=== PATIENT | female | born 1960 | race Caucasian/White ===

== ENCOUNTER 2025-03-13 13:04 | Outpatient (AMB) | payer BC, SELFPAY ==
--- NOTE | 2025-03-13 13:10 | MHC.PC.OV ---
Vital Signs 03/13/25 13:18 Height 5 ft 6.14 in Weight 224 lb 4 oz BMI 36.0 BP 122/82 Blood Pressure Location Lt brachial Position Sitting Respiration 14 Pulse 101 H Pulse Source Pulse Oximeter Temp 98.2 F Temp Source Oral Pulse Oximetry (%) 98 Oxygen Delivery Method Room Air Intake Visit Reasons: Med Management Intake Note: New patient visit Research Engineer Required: No Allergies No Known Allergies Allergy (Verified 03/13/25 13:14) Tobacco use date assessed: 03/13/25 Fall risk assessment: No Falls in past year Last assessed Fall Risk: 03/13/25 Dental Screening Dental Screen Date: 03/13/25 Did you have a dental visit in the last 12 months?: Yes Did you have a dental problem in the last 6 months where you did not have access to dental care?: No Was dental information given to patient?: Patient has dentist HPI HPI Comments History of Present Illness Details 64 year old female with a past medical history of psoriasis, arthritis presenting to [facility] . Transfer from Dr Rodney She has gained ~ 30 pounds since the Fall. She plans on going on a diet and has been successful in the past doing so. Psoriasis: Follows with [facility] [facility]. Frequent polyarthralgia Mammogram: due. [facility] Colonoscopy: cologuard ~ 1year ago (-) ROS CONSTITUTIONAL: Denies weight loss, fever and chills. HEENT: Denies changes in vision and hearing. RESPIRATORY: Denies SOB and cough. CV: Denies palpitations and CP GI: Denies abdominal pain, nausea, vomiting and diarrhea. : Denies dysuria and urinary frequency. MSK: Denies new myalgia and joint pain. SKIN: Denies rash and pruritus. NEUROLOGICAL: Denies headache PSYCHIATRIC: Denies recent changes in mood. PHYSICAL EXAM: GENERAL: Alert and oriented x 3. NAD EYES: EOMI. Anicteric. HENT: Moist mucous membranes. No scleral icterus. No cervical lymphadenopathy. LUNGS: Clear to auscultation bilaterally. CARDIOVASCULAR: Regular rate and rhythm. No murmur. No JVD. ABDOMEN: Soft, non-tender +bs EXTREMITIES: No edema. Non-tender. SKIN: No rashes or lesions. Warm. NEUROLOGIC: No focal neurological deficits. CN II-XII grossly intact PSYCHIATRIC: Cooperative. Appropriate mood and affect [facility] Surgical History H/O section H/O melanoma excision Hx of tonsillectomy H/O: hysterectomy Family History Mother HTN (hypertension) Father HTN (hypertension) High cholesterol COPD (chronic obstructive pulmonary disease) Alcoholism Paternal Grandmother Diabetes Paternal Grandfather Colon cancer Other Substance abuse Social History Housing: House Patient Tobacco Use Status: Never used Tobacco e-Cigarette/Vaping Use: Never Used Second Hand Smoke Exposure: No service: No Current occupational status: retired Cognitive needs: No Hearing needs: No Vision needs: Yes (glasses) Questionnaire PHQ-9 Over the last 2 weeks, how often have you been bothered by any of the following problems? 1. Little interest or pleasure in doing things: not at all 2. Feeling down, depressed, or hopeless: not at all 3. Trouble falling or staying asleep, or sleeping too much: not at all 4. Feeling tired or having little energy: not at all 5. Poor appetite or overeating: more than half the days 6. Feeling bad about yourself - or that you are a failure or have let yourself or your family down: not at all 7. Trouble concentrating on things, such as reading the newspaper or watching television: not at all 8. Moving or speaking so slowly that other people could have noticed. Or the opposite - being so fidgety or restless that you have been moving around a lot more than usual: not at all 9. Thoughts that you would be better off or of hurting yourself in some way: not at all Total score: 2 Depression Screening Interpretation: Negative Depression Screening Done: Yes 82999 - PHQ-9 Billing: Yes Source: Developed by Drs. Terrance Epstein, Oly Oviedo, Brooks Cruz and colleagues, with an educational aurora from [employer]. Thrive Questionnaire Date Thrive assessed: 03/13/25 I am a: Patient What is your living situation today?: I have a steady place to live Within the past 12 months, did the food you bought not last and you didn't have the money to get more?: Never true Within the past 12 months, did you worry whether your food would run out before you got money to buy more?: Never true Do you have trouble paying for medicines?: No Do you have trouble getting transportation to medical appointments?: No Do you have trouble paying your heating and electricity bill?: No Do you have trouble taking care of your child, family member or friend?: No Do you have trouble with day-to-day activities such as bathing, preparing meals, shopping, managing finances, etc.?: No Are you currently unemployed and looking for a job?: No Are you interested in more education?: No Please select the resources that you would like help with: None Currently or been in a relationship where the following occur: No concerns reported THRIVE Score: 0 AUDIT C Alcohol Use Questionnaire (AUDIT-C) 1. How often do you have a drink containing alcohol?: Never 3. How often do you have six or more drinks on one occasion?: Never Total Score: 0 ZABRINA-7 AMB Questionnaire ZABRINA-7 Date ZABRINA - 7 assessed: 03/13/25 Feeling nervous, anxious, or on edge: 0 = Not at all Not being able to stop or control worryin = Not at all Worrying too much about different things: 0 = Not at all Trouble relaxin = Not at all Being so restless that it is hard to sit still: 0 = Not at all Becoming easily annoyed or irritable: 0 = Not at all Feeling afraid as if something awful might happen: 0 = Not at all Total ZABRINA-7 score (0-4 normal; 5-9 mild; 10-14 moderate; 15-21 severe): 0 Source: Developed by Drs. Terrance Epstein, Oly Oviedo, Brooks Cruz and colleagues, with an educational aurora from [employer]. ZABRINA-7 Assessment Billing ZABRINA-7 Assessment Tool: ZABRINA-7 Assessment 88161 Physical exam (Primary Care) PHQ-9: PHQ-9 Score PHQ-9: Total score 2 03/13/25 13:11 Depression Screening Interpretation: Negative Currently or been in a relationship where the following occur: No concerns reported Coding Level of Care Code New Pt Level 4 (17604) Complex EM visit Add On G2211 Diagnoses Encounter to establish care Z76.89 Psoriasis L40.9 Psoriatic arthritis L40.50 Additional Codes ZABRINA-7 Assessment Billing - ZABRINA-7 Assessment Tool: ZABRINA-7 Assessment 81019 ([id number]) PHQ-9 - 11730 - PHQ-9 Billing: Yes ([id number]) Assessment & Plan Assessment & Plan (1) Encounter to establish care: Code(s): Z76.89 - Persons encountering health services in other specified circumstances (2) Psoriasis: Code(s): L40.9 - Psoriasis, unspecified Category: Medical (3) Psoriatic arthritis: Code(s): L40.50 - Arthropathic psoriasis, unspecified Category: Medical Plan 64 yo to establish care past medical, surgical, social reviewed psoriasis-continue derm follow up polyarthralgia-referral to rheumatology mammo, labs ordered Orders: Orders Complete Blood Count Auto Diff Today R68.89 - Other general symptoms and signs, Z13.0 - Encounter for screening for diseases of the blood and blood-forming organs and certain disorders involving the immune mechanism, Z13.220 - Encounter for screening for lipoid disorders, Z13.228 - Encounter for screening for other metabolic disorders TSH reflex Free T4 Today R68.89 - Other general symptoms and signs, Z13.0 - Encounter for screening for diseases of the blood and blood-forming organs and certain disorders involving the immune mechanism, Z13.220 - Encounter for screening for lipoid disorders, Z13.228 - Encounter for screening for other metabolic disorders LDL Cholesterol Direct Today R68.89 - Other general symptoms and signs, Z13.0 - Encounter for screening for diseases of the blood and blood-forming organs and certain disorders involving the immune mechanism, Z13.220 - Encounter for screening for lipoid disorders, Z13.228 - Encounter for screening for other metabolic disorders MM tomosynthesis screening BI Today Z12.31 - Encounter for screening mammogram for malignant neoplasm of breast Comprehensive Met. Panel Today R68.89 - Other general symptoms and signs, Z13.0 - Encounter for screening for diseases of the blood and blood-forming organs and certain disorders involving the immune mechanism, Z13.220 - Encounter for screening for lipoid disorders, Z13.228 - Encounter for screening for other metabolic disorders Erythrocyte Sedimentation Rate Today R68.89 - Other general symptoms and signs, Z13.0 - Encounter for screening for diseases of the blood and blood-forming organs and certain disorders involving the immune mechanism, Z13.220 - Encounter for screening for lipoid disorders, Z13.228 - Encounter for screening for other metabolic disorders Referrals Rheumatology Referral L40.50 - Arthropathic psoriasis, unspecified
[2025-03-13 13:18] VITALS: BP 122/82; PULSE 101; RESP 14; TEMP 36.8; O2SAT 98; BMI 36.0
--- OUTSIDE RECORDS SUMMARY | 2025-03-13 13:32 | XMS_ITS | Clinical Summary ---
Author Organization [facility] Address [address] [place] [address] Care Team Providers Care Railroad Dining Car Stewardess Name Role Phone Unavailable Primary Care Provider Unavailabl e Medications Tremfya 100 MG/ML Solution Prefilled Syringe 09/24/2021 Active LORazepam (ATIVAN) 0.5 MG tablet TAKE 1 TABLET IN THE EVENING NEEDED 09/09/2021 Active Social History Tobacco Use Types Packs/Day Years Used Date Smoking Tobacco: Never Smokeless Tobacco: Never Alcohol Use Standard Drinks/Week Comments Never 0 (1 standard drink = 0.6 oz pur e alcohol) Comments Unknown Sex and Gender Information Value Date Recorded Sex Assigned at Not on file Legal Sex Female 8:32 AM EST Gender Identity Not on file Sexual Orientation Not on file Last Filed Vital Signs Vital Sign Reading Time Taken Comments Blood Pressure - - Pulse - - Temperature - - Respiratory Rate - - Oxygen Saturation - - Inhaled Oxygen Concentration - - Weight 107 kg (235 lb) 10/17/2021 9:25 AM EST Height 172.7 cm (5' 8 ) 10/17/2021 9:25 AM EST Body Mass Index 35.73 10/17/2021 9:25 AM EST Plan of Treatment Health Maintenance Due Date Last Done Comments Hepatitis C Virus Screening 1960 COVID-19 Vaccine (#1) 1965 Quantiferon Gold TB 1970 HIV Screening 1973 DTaP/Tdap/Td Vaccines (1 - Tdap) 1979 Pneumococcal Vaccines 50+ (1 of 2 - PCV) 1979 Zoster (Shingles) Vaccine (1 of 2) 1979 Mammogram 2000 Colonoscopy 2005 RSV Vaccine 60 years and old er and Patients (1 - Risk 60-74 years 1-dose series) 2020 Influenza Vaccine 04/07/2025 Pap Smear (Ages 21-65) 08/27/2026 08/27/2023 Hepatitis B Vaccines Aged Out No long er eligible based on patient's age to complete this topic Procedures Procedure Name Priority Date/Time Associated Diagnosis Comments THINPREP PAP(GOVERNMENT INSTRUCTOR) HPV SCR RFX HPV 16,18/45 Routine 08/27/2023 12:00 AM EST from Last 3 Months or Most Recently Relevant to Health Maintenance Results * ThinPrep Pap(Environmental Intern) HPV Scr Rfx HPV 16,18/45 (08/27/2023 12:00 AM EST) [facility] Comment: Final Gynecological Cytology Report ThinPrep Pap Test, HPV Screen, Reflex HPV Genotype SPECIMEN ADEQUACY: SATISFACTORY FOR EVALUATION. INTERPRETATION: NEGATIVE FOR INTRAEPITHELIAL LESION OR MALIGNANCY. Atrophy Electronically Signed: Placido Valenzuela CT(ASCP) CLINICAL INFORMATION: LMP: NG Clinical History: NG Biopsy Date: NG Specimen Source: Vagina, Cervix, Endocervix Previous Pap Date: NG HPV RESULTS: HPV mRNA E6/E7 [id number] Approved: 08/28/23 Negative REF RANGE: Negative CPT Codes: 13778 ICD Codes: Z01.419 08/27/2023 08/28/2023 1:3 8 AM EST us Irene Darnell DO LAB AMB PATH/CYTO ORDERABLES Final Result [facility] [address], [place] from Last 3 Months or Most Recently Relevant to Health [place] [id number] BLUE CROSS OUT OF STATE - [facility]
--- OUTSIDE RECORDS SUMMARY | 2025-03-13 13:32 | XMS_ITS | Clinical Summary ---
Author Organization [facility] Address [address] [place] [address] Care Team Providers Care Molding Line Operator Name Role Phone Unavailable Primary Care Provider Unavailabl e Allergies No known active allergies Medications Medication Sig Dispensed Refills Start Date End Date Status Magnesium Carbonate POWD by Does not apply route daily. 0 Active Cholecalciferol (Vitamin D3) 1000 units CAPS Take by mouth daily. 0 Active Turmeric 1053 MG TABS Take by mouth daily. 0 Active oxyCODONE (ROXICODONE) 5 MG immediate release tablet Take 1 tablet (5 mg total) by mouth every 6 (six) hours as needed (severe pain). 15 tablet 0 02/11/2024 Active Active Problems Problem Noted Date Diagnosed Date Class 2 obesity 01/20/2024 01/20/2024 Post-menopausal bleeding 09/28/2023 Psoriasis 02/28/2013 01/20/2024 H/O tubal ligation 02/28/2013 01/20/2024 Resolved Problems Problem Noted Date Diagnosed Date Resolved Date Melanoma 02/28/2013 01/20/2024 01/21/2024 Overview: Follows with derm Social History Tobacco Use Types Packs/Day Years Used Date Smoking Tobacco: Never Smokeless Tobacco: Never Tobacco Cessation:Counseling Given: Not Answered Alcohol Use Standard Drinks/Week Comments Not Currently 0 (1 standard drink = 0.6 oz pur e alcohol) Sex and Gender Information Value Date Recorded Sex Assigned at Female 09/09/2023 4:22 PM EST Gender Identity Not on file Sexual Orientation Not on file Job Start Date Occupation Industry Not on file Not on file Not on file Last Filed Vital Signs Vital Sign Reading Time Taken Comments Blood Pressure 131/69 02/11/2024 12:49 PM EDT Pulse 67 02/11/2024 12:49 PM EDT Temperature 36.3 C (97.3 F) 02/11/2024 10:00 AM EDT Respiratory Rate 18 02/11/2024 12:49 PM EDT Oxygen Saturation 96% 02/11/2024 12:49 PM EDT Inhaled Oxygen Concentration - - Weight 90.3 kg (199 lb) 02/08/2024 10:33 AM EDT Height 172.7 cm (5' 8 ) 02/08/2024 10:33 AM EDT Body Mass Index 30.26 02/08/2024 10:33 AM EDT Plan of Treatment Health Maintenance Due Date Last Done Comments Hepatitis C Screening 1960 COVID-19 Vaccine (#1) 1960 Depression Screening 1972 BMI Counseling 1978 Preventative Health Evaluation 1978 Cervical Cancer Screening (P ap Smear) 1981 Colon Cancer Screening (Colonoscopy) 2005 Breast Cancer Screening (Mammogram) 2010 Shingrix-Zoster Vaccine (1 of 2) 2010 DTap / Tdap / Td (2 - Td or Tdap) 02/28/2023 013 Influenza Vaccine (#1) 2025 Pneumococcal Vaccine (1 of 1 - PCV) 2025 RSV Adult > 60+ Yrs or Pregn ant (1 - 1-dose 75+ series) 2035 Hepatitis B Vaccines Aged Out No long er eligible based on patient's age to complete this topic Pneumococcal Vaccine Aged Out No long er eligible based on patient's age to complete this topic RSV Ped < 20 months Aged Out No longe r eligible based on patient's age to complete this topic Goals Goal Patient Goal Type Associated Problems Recent Progress Patient-Stated? Author Wellness Coaching - Weight Wellness Coaching No Parul Benjamin PA-C Note: Has started exercising by walking daily at a brisk pace for the past week and feels better. Medical Devices Implanted Type Area Licensed Practical Vocational Nurse Device Identifier Shelf Expiration Date Model / Serial / Lot Hemostat Surg Ah Thao 1gm Crba-Davl [id number] - [id number] Implanted:Qty : 1 on 02/11/2024 by Irene Darnell DO at [facility] [place] [facility] Hemostatic Agent Abdomen CR BARD - DAVOL DIV 07/04/2028 [id number] / / [id number] Advance Directives For more information, please contact: [phone] Latest Code Status on File Code Status Date Activated Date Inactivated Comments Full Code 02/11/2024 9:48 AM 02/11/2024 7:40 PM This co de status was ascertained in the following way: discussion with patient .
--- OUTSIDE RECORDS SUMMARY | 2025-03-13 13:32 | XMS_ITS | Clinical Summary ---
Author Organization [facility] Address [address] [place] [address] Care Team Providers Care Test And Balance Engineer Name Role Phone Kassy Rodney MD Primary Care Provider [phone] Surgical History Surgery Date Site/Laterality Comments TONSILLECTOMY PROCEDURE:TONSILLECTOMY SECTION PROCEDURE: SECTION HYSTEROSCOPY 10/12/2023 N/A PROCEDURE:HYSTEROSCOPY;COMMEN T:Procedure: D&C HYSTEROSCOPY; Surgeon: Irene Darnell DO; Location: [facility] AMBUL[facility]ORY SUR[facility]ERY; Service: Gynecology; Laterality: N/A; OTHER SURGICAL HISTORY Left PROCEDURE:melanoma excision;COMMENT:Breast CATARACT EXTRACTION W/ INTRAOCULAR LENS IMPLANT PROCEDURE:CATARACT EXTRACTION W/ INTRAOCULAR LENS IMPLANT LAPAROSCOPIC HYSTERECTOMY 02/11/2024 Bilateral PROCEDURE:LAPAROSCOPIC HYSTERECTOMY;COMMENT:Procedur e: ROBOTIC TOTAL LAPAROSCOPIC HYSTERECTOMY BILATERAL SALPINGECTOMY AND OOPHORECTOMY; Surgeon: Irene Darnell DO; Location: [facility] MAIN OPERATING ROOM; Service: Gynecology; Laterality: Bilateral; Medical History Medical History Date Comments Cancer ([facility] V24, [facility] V28) 1986 DX:Cancer (HCC);COMMENT:melanoma left breast Cataract DX:Cataract Melanoma (CMS/HCC V24, CMS/[facility] V28) 02/28/2013 DX:Melanoma (HCC);COMMENT: Follows with derm Psoriasis DX:Psoriasis Social History Tobacco Use Types Packs/Day Years Used Date Smoking Tobacco: Never Smokeless Tobacco: Never Alcohol Use Standard Drinks/Week Comments Not Currently 0 (1 standard drink = 0.6 oz pur e alcohol) Comments Unknown Sex and Gender Information Value Date Recorded Sex Assigned at Not on file Legal Sex Female 9:46 AM EST Gender Identity Not on file Sexual Orientation Not on file Obstetrics History Last Filed Vital Signs Vital Sign Reading Time Taken Comments Blood Pressure 132/80 01/21/2024 8:13 AM EDT Sitting Right arm Pulse 67 01/21/2024 8:13 AM EDT Temperature - - Respiratory Rate - - Oxygen Saturation - - Inhaled Oxygen Concentration - - Weight 93.9 kg (207 lb) 01/21/2024 8:13 AM EDT Height - - Body Mass Index - - Plan of Treatment Health Maintenance Due Date Last Done Comments Breast Cancer Screening 1960 COVID-19 Vaccine (#1) 1965 Pneumococcal Vaccine: 50+ Ye ars (1 of 2 - PCV) 1979 Pneumococcal Vaccine: Pediat rics (0 to 5 Years) and At-Risk Patients (6 to 49 Years) (1 of 2 - PCV) 1979 Zoster Vaccines (1 of 2) 1979 Cervical Cancer Screening: P ap Smear 1981 Colorectal Cancer Screening: Colonoscopy 08/17/2022 Depression Screening 08/17/2022 HIV Screening 08/17/2022 Hepatitis C Screening 08/17/2022 Social Influencers of Health Screening 08/17/2022 DTaP,Tdap,and Td Vaccines (2 - Td or Tdap) 02/28/2023 02/28/2013 Influenza Vaccine (#1) 2025 RSV Immunization Adult Patie nts (1 - 1-dose 75+ series) 2035 HIB Vaccines Aged Out No longer eligi ble based on patient's age to complete this topic HPV Vaccines Aged Out No longer eligi ble based on patient's age to complete this topic Hepatitis A Vaccines Aged Out No long er eligible based on patient's age to complete this topic Hepatitis B Vaccines Aged Out No long er eligible based on patient's age to complete this topic IPV Vaccines Aged Out No longer eligi ble based on patient's age to complete this topic MMR Vaccines Aged Out No longer eligi ble based on patient's age to complete this topic Meningococcal ACWY Vaccine Aged Out N o longer eligible based on patient's age to complete this topic Meningococcal B Vaccine Aged Out No l onger eligible based on patient's age to complete this topic RSV Immunization Patients Un nallely 20 months Aged Out No longer eligible b ased on patient's age to complete this topic Varicella Vaccines Aged Out No longer eligible based on patient's age to complete this topic Medical Devices Implanted Type Area Offset Label Rewinder Device Identifier Shelf Expiration Date Model / Serial / Lot Hemostat Surg Ah Thao 1gm Crba-Davl [id number] Implanted:Qty: 1 on 02/11/2024 by Irene Darnell, Implants Abdomen CR BARD - DAVOL DIV 07/04/2028 [id number] / / [id number] Care Teams Test And Balance Engineer Relationship Specialty Start Date End Date Kassy Rodney MD [address] [place] [address] PCP - General Internal Medicine 07/02/17
--- OUTSIDE RECORDS SUMMARY | 2025-03-13 13:32 | XMS_ITS | Data Portability ---
Author Organization [place] - [facility]'s [facility], [facility] Address [id number] [place] [address] Assessment No assessment recorded. Plan of Treatment Reminders Order Date Submit Date Provider Last Modified By Organization Details Last Modified Time Details Appointments None recorded. Lab pap, IG + HPV 2022 023 [facility], [address] [place], [address] 3 08:40:38 Referral None recorded. Procedures None recorded. Surgeries None recorded. Imaging US, transvagina l 2022 023 [facility], All Locations, [place], [address], 16:15:08 Medication Orders None recorded. Patient TargetsNo targets recorded. Patient Instructions Encounter Date Encounter Id Patient Instructions Last Modified By Organization Details Last Modified Time 08/20/2023 [id number] vaginal bleeding after menopause: care instructions [email or web address] Not available 08/20/2023 11:42:33 08/27/2023 [id number] tips to help you stay healthy [email or web address] Not available 09/01/2023 15:33:22 self breast exam education [email or web address] Not available 09/02/2023 07:34:56 exercise [email or web address] Not available 2022 07:34:56 protect bone wit h calcium and vitamin D [email or web address] Not available 09/02/2023 07:34:56 genital human papilloma virus information [email or web address] Not available 09/02/2023 07:34:56 Reason for Referral None Reported. Results Created Date Observation Date Name Description Value Unit Range Abnormal Flag Note LastModifiedBy Organization Detail LastModifiedTime 08/27/20 23 08/27/2023 HPV MRNA E6/E7 HPV MRNA E6/E7 Negati ve negati ve APTIM A HPV assay detec ts 14 high risk HPV types (HPV 16,18 ,31,3 3,35, 39,45 ,51,5 2,56, 58,59 ,66,6 8). The assay is FDA appro gentry for testi ng ThinP rep liqui d Pap vials but not FDA appro gentry for detec ting HPV in SureP ath liqui d Pap speci mens. In-ho use valid ation has shown the assay can detec t all HPV types from this sourc e Not Available [facility] [address] [facility], [place], [address] 09/03/2023 08:40:33 08/27/2008/27/2023 THINP REP PAP TEST (IMAG ER), HPV SCREE N, REFLE X HPV 16,18 /45 report Report Final Gynec ologi tunde Cytol ogy Repor t ----- ----- ----- ----- ----- ----- ----- ----- ----- ----- ----- ----- ThinP rep Pap Test, HPV Scree n, Refle x HPV Genot ype SPECI MEN ADEQU ACY: SATIS FACTO RY FOR EVALU ATION . INTER PRETA TION: NEGAT SEE FOR INTRA EPITH JUSTIN Truong OR HERMANN SANTIAGO . Atrop hy Elect narendra Herrera d: Placido Valenzuela, [place]( CP) ----- ----- ----- ----- ----- ----- ----- ----- ----- ----- ----- ----- CLINI TUNDE INFOGeovanni SUTTON N: LMP: NG Clini tunde Histo ry: NG Biops y Date: NG Speci men Sourc e: Vagin a, Cervi x, Endoc ervix Previ ous Pap Date: NG HPV RESUL TS: HPV mRNA E6/E7 [id number] Appro gentry: 08/28 Negat see REF RANGE : Negat see CPT Codes : 06157 ICD Codes : Z01.4 19 Not Available [facility] [address] [place], [address] 09/03/2023 08:40:38 10/05/19 24 10/05/2023 TYPE AND SCREE N ABO/Rh A POSITI VE Not Available [address], [address], 10/05/2023 13:23:54 10/05/19 24 10/05/2023 TYPE AND SCREE N antibody screen NEGATI VE Not Available [address], [address], 10/05/2023 13:23:54 10/05/19 24 10/05/2023 TYPE AND SCREE N bb comment chart Testi ng perfo rmed at [facility] is Hospi violetta and Medic al [facility], [address] [place] [id number] , Allis on Anyi bucio MD Medic al [facility] tor, CLIA 07D00 65434 [id number] 3 No histo ry of previ ous ABO/R h. Pt needs a repea t ABO/R h spec drawn , prior to trans fusio n. Not Available [address], [address], 10/05/2023 13:23:54 08/20/20 23 08/20/2023 US, trans vagin al No observ ation record ed. [facility] (Radiology) [address] [place] [address], [address], 09/09/2023 17:10:13 08/21/20 23 08/21/2023 US, trans vagin al No observ ation record ed. [facility] (Radiology) [address] [place] [address], [address], 08/21/2023 09:56:48 Result Notes None recorded. Problems No Known Problems Procedures Surgical History Date Name Laterality Status Provider Name and Address Organization Details Recorded Time 02/11/20 24 robot assisted laparoscopic total hysterectomy completed Magdalena Ku, DO [address], [address], [place], [address], [facility] 03/03/2024 17:59:43 08/27/20 23 Date of Last Pap Smear completed Magdalena Ku, DO [address], [address], [place], [address], [facility] 09/03/2023 22:11:37 09/07/19 21 Remove tonsils and adenoids completed Magdalena Ku, DO [address], [address] [facility], [place], [address], [facility] 03/03/2024 17:57:58 09/07/18 87 mohs surgery completed Magdalena Ku, DO [address], [address] [facility], [place], [address], [facility] 03/03/2024 17:57:50 delivery completed Irene Darnell, DO [address], [address] [facility], [place], [address], [facility] 08/20/2023 11:35:55 Imaging Results None recorded. Procedure Notes None recorded. Medical Equipment None Reported. Allergies No known drug allergies Medications Name Sig Start Date Stop Date Status Note LastModified by Organization Details LastModified Time tretinoin 0.1 % topical cream APPLY DAILY 3 TIMES A WEEK FOR THE 1ST WEEK THEN ESCALATE UP TO EVERY NIGHT TOLERATED active Not Available Not Available No t Available acetaminoph en 325 mg tablet TAKE 2 TABLETS BY MOUTH EVERY 6 HOURS NEEDED FOR PAIN. active Not Available Not Available No t Available senna 8.6 mg tablet TAKE 1 TABLET BY MOUTH 2 TIMES A DAY NEEDED FOR CONSTIPAT ION. active Not Available Not Available No t Available clobetasol 0.05 % topical cream APPLY TO AFFECTED AREA TWICE A DAY FOR 2 WEEKS active Not Available Not Available No t Available gabapentin 100 mg capsule TAKE 1 CAPSULE BY MOUTH EVERY DAY FOR 30 DAYS active Not Available Not Available No t Available epinephrine 0.3 mg/0.3 mL injection, auto-inject or USE NEEDED active Not Available Not Available No t Available ibuprofen 600 mg tablet TAKE 1 TABLET BY MOUTH EVERY 6 HOURS NEEDED FOR PAIN active Not Available Not Available No t Available albuterol sulfate HFA 90 mcg/actuati on aerosol inhaler INHALE 2 PUFFS EVERY 4 TO 6 HOURS NEEDED active Not Available Not Available No t Available doxycycline hyclate 100 mg tablet TAKE 2 TABS BY MOUTH DAILY FOR 1 DAY, THEN 1 TABLET DAILY FOR 9 DAYS 08/20 completed Not Available Not Available Not Available fluticasone propionate 110 mcg/actuati on HFA aerosol inhaler INHALE 2 PUFFS TWICE DAILY * SUBSTITUT ION OK'D BY * active Not Available Not Available No t Available oxycodone 5 mg tablet TAKE 1 TABLET BY MOUTH EVERY 6 HOURS NEEDED (SEVERE PAIN). active Not Available Not Available No t Available Tremfya 100 mg/mL subcutaneou s syringe active Not Available Not Available No t Available Tremfya 100 mg/mL subcutaneou s auto-inject or active Not Available Not Available Not Available Vtama 1 % topical cream Apply to affected once daily 08/20 completed Not Available Not Available Not Available Vitals Date Recorded Body height Body mass index (BMI) Body weight Systolic And Diastolic Provider Name and Address Organization Details Last Updated DateTime 11/11/2023 172.72 cm 35.7 kg/m2 215624.21 g 126/82 mm[Hg] [facility] 11/11/2023 14:40:06 Date Recorded Body height Body mass index (BMI) Body weight Systolic And Diastolic Provider Name and Address Organization Details Last Updated DateTime 03/17/2024 172.72 cm 29.8 kg/m2 76163.39 g 124/82 mm[Hg] [facility] 03/17/2024 11:43:36 Date Recorded Body height Body mass index (BMI) Body weight Systolic And Diastolic Provider Name and Address Organization Details Last Updated DateTime 08/20/2023 172.72 cm 35.7 kg/m2 101958.21 g 146/82 mm[Hg] [facility] 08/20/2023 11:30:19 Date Recorded Body height Body mass index (BMI) Body weight Systolic And Diastolic Provider Name and Address Organization Details Last Updated DateTime 08/27/2023 172.72 cm 32.7 kg/m2 83375.08 g 134/80 mm[Hg] G[facility]mez [place] [facility] 08/27/2023 13:17:07 Social History Question Answer Notes LastModified by Organizat ion Details LastModified Time Tobacco Smoking Status Never Smoker Irene Darnell, DO [address] [facility], 3rd Floor, [place], [address], [place] [facility] 08/20/2023 11:37:30 Do You Have Any Children? Yes Information not available 08/20/2023 Does Your Partner Physically Hurt You Or Threaten To Hurt You? No Information not available 08/20/2023 Has Your Partner Forced You To Have Sex Or Perform Sex Acts When You Did Not Want To? No Information not available 08/20/2023 Does Your Partner Insult, Scream At Or Talk Down To You? No Information not available 08/20/2023 Does Your Partner Control You Or Any Part Of Your Life? No Information not available 08/20/2023 Are You Afraid Of Your Partner? No Information not available 08/20/2023 Drug Use? No Information no t available 08/20/2023 Do You Feel Safe At Home? Yes Information not available 08/20/2023 Do You Use Protection During Sex? No Information not available 08/20/2023 Are You Sexually Active? Yes Information not available 08/20/2023 Sex: Unknown Functional Status None recorded. Mental Status None recorded. Family History Relationship Description Onset Age of this Age Resolved Age Notes LastModified by Organization Details LastModified Time Father Cirrhosis of liver [email or web address] Not available 2022 11:38:25 Mother Kidney disease 98 [email or web address] Not available 2022 11:38:44 Medical History Condition Response Other Gynecological History Statement/Question Response If Post Menopausal, Age at Menopause 50 Date of Last Pap Smear 08/27/2023 Date of Last Mammogram Date of LMP Last HPV Result Negative Obstetrics History GPAL:G 2 P 2 0 0 2 Type Value Full Term 2 Living 2 Total 2 Past Encounters Encounter ID Performer Location Encounter Start Date Encounter Closed Date Diagnosis/Indication Diagnosis SNOMED-CT Code Diagnosis ICD10 Code Diagnosis Note [id number] Irene Mann DO CWO2 [address] [facility], [address] [place] [address] 08/20/2023 11:20:12 08/20/2023 11:58:46 Postmenopausal bleeding [id number] N95.0 will get tvus. consider d&c, hysterosco py v emb- discussed risks and benefits of ether tx.patient to make an appt for annual exammammog amaury and colonoscop y utd 25 min spent, all in face to face discussion counseling and coordinati ng care5 min documentin g30 min total [id number] Ireneharinder Darnell DO O1 [address] [facility], [address] [place] [address] 08/27/2023 13:00:15 08/27/2023 13:28:19 Gynecologic examination [id number] Z01.419 [id number] Irene Darnell DO O1 [address] [facility], [address] [place] [address] 11/11/2023 14:29:19 11/11/2023 15:07:34 Postoperative visit [id number] Z48.89 s/p d&c, hysterosco py, polypectom y 10/12/23 w. persistent PMBwill monitor for 2 more weeks, if bleeding is persistent , I am recommendi ng hysterecto my.discuss ed robotic approach and patient amenable, will call if bleeding continues [id number] Irene Darnell DO CWO2 [address] [facility], [address] [place] [address] 03/17/2024 11:39:26 03/17/2024 12:57:41 Postoperative visit [id number] Z48.89 doing well post oppelvic rest until 10 weeks postop Health Concerns Section Related Observation LastModified by Organization Detai ls LastModified Time None Recorded Concern Status LastModified by Organization Details LastModified Time None Recorded Advance Directives Directive None Recorded Payers Insurance Date Sequence Insurance Name Policy Number Policy Ansari Covered Member ID Ansari Member ID Guarantor Name 03/25/2024 1 [place] [id number] Ankush Cruz [id number] Milvia Cruz Notes Date Note Type Note Provider Name and Address Organization Details Recorded Time 08/20/2023 text/html 63 yo postmenopa usal woman presents WITH pmb x 4 monthsno weight loss, change in bowel or bladder habitsshe is not on hrt. Irene Darnell DO [address] [facility], [address] [place] [address], [place], [address], [facility] 08/22/2023 19:44:51 08/27/2023 text/html 63 yo woman pres ents for annual examShe continues to have PMB. Scheduling D&C, hysteroscopy DO Nathalie Baumann [facility], [address] [place] [address], [place], [place], [address] [place] [address], [facility] 09/02/2023 07:35:39 11/11/2023 text/html 63 yo postmenopa usal woman with PMB s/p d&c, hysteroscopy, polypectomy 10/12/23 presents for a post op visit.patient continues with have vaginal bleeding every few days.pathology showed inactive endometrium and benign endometrial polyps Irene Darnell DO [address] [facility], [address] [place] [address], [place], [address], [facility] 11/11/2023 14:56:24 03/17/2024 text/html [facility] Post-OpRepor rene bypatient.Onset/Glenn ng:date of surgery: (02/11/24) Quality:procedure: (TRH.BSO) Context:reason for procedure: (peristent PMB); operative findings: (NORMAL PELVIC organs); operative complications: (none); pathology findings: (benign EM polyp, adenomyosis, nml tubes and ovaries) Associated Symptoms:incision healing well; no fatigue; normal appetite; normal bowel function; no constipation; no nausea; no emesis; pain improving; no pain; no fever; no bleeding; no lower extremity edema/pain; no dysuria/urinary symptoms DO Nathalie Baumann [facility], 3rd Floor, [place], [address], [place] [facility] 03/24/2024 12:58:48 OBGyn Episode No OBEpisode recorded.
== END 2025-03-13 13:48 | disposition home or self-care (01) ==
LOC: HO.HMCFM 13:05
PROVIDERS: PCP Internal Medicine; Visit Provider Internal Medicine
DX: Z76.89 Persons encountering health services in other specified circumstances (principal); L40.9 Psoriasis, unspecified; L40.50 Arthropathic psoriasis, unspecified

== ENCOUNTER → 2025-03-13 13:04 | Outpatient (BNVA) | payer BC, SELFPAY | PROVIDERS: PCP Internal Medicine; Visit Provider Internal Medicine | DX: Z76.89 Persons encountering health services in other specified circumstances (principal); L40.9 Psoriasis, unspecified; L40.50 Arthropathic psoriasis, unspecified; Z13.30 Encounter for screening examination for mental health and behavioral disorders, unspecified; Z13.31 Encounter for screening for depression | CPT/HCPCS: 96127 ==

== ENCOUNTER 2025-03-13 13:58 | Outpatient (REF) | payer BC, SELFPAY ==
--- OUTSIDE RECORDS SUMMARY | 2025-03-13 14:27 | XMS_ITS ---
Author Name CRISP Organization Unknown Results Test Name/Text Value Interpretation Date Range Source ABO+RH GP BLD A POSITIVE Normal 01/21/2024 [facility] NEM BLOOD BANK CMNT PATIENT-IMP Testing performed at [facility], [address] [place] [address], Rochelle Joshi MD [employer] Manager, [facility] [id number] Normal 01/21/2024 [facility] BLD GP AB SCN SERPL QL NEGATIVE Normal 01/21/2024 [facility] CALCIUM SERPL MCNC 9.0 mg/dL Normal 01/21/2024 8.4 - 10.2 [facility] PROT SERPL MCNC 6.8 g/dL Normal 01/21/2024 6.4 - 8.5 [facility] AST SERPL CCNC 18.0 U/L Normal 01/21/2024 5 - 40 [facility] ALP SERPL-CCNC 62.0 U/L Normal 01/21/2024 34 - 104 [facility] CREAT SERPL MCNC 0.9 mg/dL Normal 01/21/2024 0.5 - 1 [facility] BILIRUB SERPL MCNC 0.3 mg/dL Normal 01/21/2024 0.3 - 1 [facility] HCO3 SER SCNC 25.0 mmol/L Normal 01/21/2024 24 - 32 [facility] ALBUMIN SERPL BCG MCNC 3.9 g/dL Normal 01/21/2024 3.5 - 5 [facility] CHLORIDE SERPL SCNC 106.0 mmol/L Normal 01/21/2024 98 - 1 07 [facility] ANION GAP SERPL SCNC 10.0 mmol/L Normal 01/21/2024 5 - 14 [facility] Glomerular filtration rate/1.73 sq M. predicted 72.0 Normal 01/21/2024 60 - [facility] GLUCOSE SERPL MCNC 110.0 mg/dL Normal 01/21/2024 70 - 199 [facility] POTASSIUM SERPL SCNC 4.0 mmol/L Normal 01/21/2024 3.5 - 5.1 [facility] SODIUM SERPL SCNC 141.0 mmol/L Normal 01/21/2024 135 - 14 5 [facility] BUN SERPL MCNC 16.0 mg/dL Normal 01/21/2024 7 - 17 [facility] ALT SERPL CCNC 27.0 U/L Normal 01/21/2024 7 - 52 [facility] MCH RBC QN AUTO 29.4 pg Normal 01/21/2024 25 - 33 [facility] HGB BLD MCNC 13.3 g/dL Normal 01/21/2024 12.5 - 16 [facility] MG BASOPHILS NFR BLD AUTO 0.3 % Normal 01/21/2024 0 - 2 [facility] NEUTROPHILS NO. BLD AUTO 4.8 K/uL Normal 01/21/2024 1.8 - 7.8 [facility] RBC NO. BLD AUTO 4.53 M/uL Normal 01/21/2024 4.2 - 5.4 [facility] EOSINOPHIL NO. BLD AUTO 0.1 K/uL Normal 01/21/2024 0 - 0.5 [facility] MONOCYTES NO. BLD AUTO 0.4 K/uL Normal 01/21/2024 0 - 0.8 [facility] MCV RBC AUTO 89.2 fL Normal 01/21/2024 78 - 100 [facility] MG LYMPHOCYTES NO. BLD AUTO 1.6 K/uL Normal 01/21/2024 1 - 3.2 [facility] WBC NO. BLD AUTO 7.0 K/uL Normal 01/21/2024 4 - 10.5 [facility] PMV BLD AUTO 10.3 fL Normal 01/21/2024 7.4 - 11.4 [facility] EMG BASOPHILS IN BLOOD BY AUTOMATED COUNT 0.0 K/uL Normal 01/21/2024 0 - 0.2 [facility] DIFFERENTIAL TYPE AUTOMATED Normal 01/21/2024 [facility] MCHC RBC AUTO MCNC 33.0 g/dL Normal 01/21/2024 32 - 36 [facility] RDW RBC AUTO RTO 14.6 % Normal 01/21/2024 12.1 - 16.2 [facility] HCT VFR BLD AUTO 40.4 % Normal 01/21/2024 37 - 47 [facility] NEUTROPHILS NFR BLD AUTO 68.1 % Normal 01/21/2024 44 - 74 [facility] LYMPHOCYTES NFR BLD AUTO 23.4 % Normal 01/21/2024 20 - 48 [facility] PLATELET NO. BLD AUTO 201.0 K/uL Normal 01/21/2024 150 - 450 [facility] MONOCYTES NFR BLD AUTO 6.4 % Normal 01/21/2024 2 - 12 [facility] EOSINOPHIL NFR BLD AUTO 1.8 % Normal 01/21/2024 0 - 6 [facility] LYMPHOCYTES NFR BLD AUTO 19.7 % Below low normal 10/05/2023 20 - 48 [facility] EOSINOPHIL NO. BLD AUTO 0.2 K/uL Normal 10/05/2023 0 - 0.5 [facility] PMV BLD AUTO 9.2 fL Normal 10/05/2023 7.4 - 11.4 [facility] EOSINOPHIL NFR BLD AUTO 1.3 % Normal 10/05/2023 0 - 6 [facility] MCHC RBC AUTO MCNC 33.3 g/dL Normal 10/05/2023 32 - 36 [facility] NEUTROPHILS NO. BLD AUTO 8.2 K/uL Above high normal 10/05/2023 1.8 - 7.8 [facility] BASOPHILS IN BLOOD BY AUTOMATED COUNT 0.1 K/uL Normal 10/05/2023 0 - 0.2 [facility] DIFFERENTIAL TYPE AUTOMATED Normal 10/05/2023 [facility] NEUTROPHILS NFR BLD AUTO 72.5 % Normal 10/05/2023 44 - 74 [facility] RBC NO. BLD AUTO 4.69 M/uL Normal 10/05/2023 4.2 - 5.4 [facility] MCH RBC QN AUTO 29.3 pg Normal 10/05/2023 25 - 33 [facility] MCV RBC AUTO 88.1 fL Normal 10/05/2023 78 - 100 [facility] MG HGB BLD MCNC 13.7 g/dL Normal 10/05/2023 12.5 - 16 [facility] MG RDW RBC AUTO RTO 14.7 % Normal 10/05/2023 12.1 - 16.2 [facility] PLATELET NO. BLD AUTO 253.0 K/uL Normal 10/05/2023 150 - 450 [facility] BASOPHILS NFR BLD AUTO 0.5 % Normal 10/05/2023 0 - 2 [facility] MONOCYTES NFR BLD AUTO 6.0 % Normal 10/05/2023 2 - 12 [facility] LYMPHOCYTES NO. BLD AUTO 2.2 K/uL Normal 10/05/2023 1 - 3.2 [facility] MONOCYTES NO. BLD AUTO 0.7 K/uL Normal 10/05/2023 0 - 0.8 [facility] HCT VFR BLD AUTO 41.3 % Normal 10/05/2023 37 - 47 [facility] WBC NO. BLD AUTO 11.4 K/uL Above high normal 10/05/2023 4 - 10.5 [facility] SODIUM SERPL SCNC 137.0 mmol/L Normal 10/05/2023 135 - 14 5 [facility] CHLORIDE SERPL SCNC 102.0 mmol/L Normal 10/05/2023 98 - 1 07 [facility] CREAT SERPL MCNC 0.9 mg/dL Normal 10/05/2023 0.5 - 1 [facility] CALCIUM SERPL MCNC 9.7 mg/dL Normal 10/05/2023 8.4 - 10.2 [facility] Glomerular filtration rate/1.73 sq M. predicted 72.0 Normal 10/05/2023 60 - [facility] ALT SERPL CCNC 31.0 U/L Normal 10/05/2023 7 - 52 [facility] HCO3 SER SCNC 24.0 mmol/L Normal 10/05/2023 24 - 32 [facility] ANION GAP SERPL SCNC 11.0 mmol/L Normal 10/05/2023 5 - 14 [facility] BUN SERPL MCNC 17.0 mg/dL Normal 10/05/2023 7 - 17 [facility] ALP SERPL-CCNC 70.0 U/L Normal 10/05/2023 34 - 104 [facility] POTASSIUM SERPL SCNC 3.8 mmol/L Normal 10/05/2023 3.5 - 5.1 [facility] ALBUMIN SERPL BCG MCNC 4.1 g/dL Normal 10/05/2023 3.5 - 5 [facility] GLUCOSE SERPL MCNC 133.0 mg/dL Normal 10/05/2023 70 - 199 [facility] AST SERPL CCNC 24.0 U/L Normal 10/05/2023 5 - 40 [facility] BILIRUB SERPL MCNC 0.4 mg/dL Normal 10/05/2023 0.3 - 1 [facility] PROT SERPL MCNC 7.7 g/dL Normal 10/05/2023 6.4 - 8.5 [facility] BLOOD BANK CMNT PATIENT-IMP Testing performed at [facility], [address] [place] [id number], Rochelle Joshi MD [employer] Cult[employer] Manager, [facility] [id number] No history of previous ABO/Rh. Pt nee Normal 10/05/2023 [facility] ABO+RH GP BLD A POSITIVE Normal 10/05/2023 [facility] BLD GP AB SCN SERPL QL NEGATIVE Normal 10/05/2023 [facility] History of Medication Use Medication Directions Dispensed Refills Start Date End Date Stat acetaminophen (Tylenol) 325 MG tablet Take 2 tablets (650 mg total) by mouth every 6 (six) hours as needed for pain. 10/12/2023 active Tremfya 100 MG/ML Inject 100 mL (10,000 mg total) under the skin every 8 (eight) weeks. Last dose 7 weeks ago 10/02/2023 active LORazepam (ATIVAN) 0.5 MG tablet TAKE 1 TABLET IN THE EVENING NEEDED 09/09/2021 active albuterol sulfate HFA 90 mcg/actuation aerosol inhaler INHALE 2 PUFFS EVERY 4 TO 6 HOURS NEEDED 08/20/2023 completed Vtama 1 % topical cream Apply to affected once daily 08/20/2023 completed acetaminophen 325 mg tablet TAKE 2 TABLETS BY MOUTH EVERY 6 HOURS NEEDED FOR PAIN. active clobetasol 0.05 % topical cream APPLY TO AFFECTED AREA TWICE A DAY FOR 2 WEEKS active gabapentin 100 mg capsule TAKE 1 CAPSULE BY MOUTH EVERY DAY FOR 30 DAYS active senna 8.6 mg tablet TAKE 1 TABLET BY MOUTH 2 TIMES A DAY NEEDED FOR CONSTIPATION. active Tremfya 100 mg/mL subcutaneous auto-injector active Tremfya 100 mg/mL subcutaneous syringe acti ve Problems Problem Status Onset Date Problem Type Date of Resoluti on Source Hordeolum externum unspecified eye, unspecified eyelid active 2024-04-09 [facility]Act [facility] Psoriasis, unspecified active ProblemAct [facility] Class 2 obesity active 2024-01-[address] [facility] H/O tubal ligation active 2013-02-28 ProblemAct [facility] Post-menopausal bleeding active 2023-09-28 ProblemAct [facility] Psoriasis active 2013-02-28 ProblemAct [facility] Encounters Encounter Type Encounter Reason Primary Diagnosis Location Date Ambulatory Postmenopausal bleeding Postmenopausal [facility] 03/17/2024 Ambulatory Postmenopausal bleeding Postmenopausal bleeding [facility] 02/11/2024 Ambulatory Encounter for other specified surgical aftercare Encounter for other specified surgical aftercare [facility] 02/11/2024 Ambulatory 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) (routine) w/o abn findings 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) (routine) w/o abn findings [facility] [employer] [facility] 11/11/2023 Ambulatory Postmenopausal bleeding Postmenopausal bleeding [facility] 10/12/2023 Ambulatory 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) (routine) w/o abn findings [facility] [employer] [facility] 10/12/2023 Ambulatory Encounter for other preprocedural examination Encounter for other preprocedural examination [facility] 10/05/2023 Ambulatory Postmenopausal bleeding [facility] [employer] [facility] 08/27/2023 Ambulatory no current diagnosis [facility] [employer] [facility], [facility] 08/20/2023 Ambulatory Dizziness and giddiness [facility] 10/17/2021 Care Team Organization Name Specialty Phone Email Start Date End Da te [facility] 04/09/2024 [facility] 04/09/2024 [facility] 01/05/2024 02/06/2025 [facility] 12/30/2023 [facility] 12/30/2023 [facility] 08/20/2023 08/20/2023 [facility] 08/20/2023 [facility] 10/17/2021 04/25/2024 [facility] 10/17/2021 10/17/2021
[2025-03-13 17:52] LABS: MANUAL DIFF FLAG NO
[2025-03-13 17:56] LABS: Hematocrit 40.7 % (37.0-47.0); Hemoglobin 13.5 g/dl (12.0-16.0); Imm Gran Abs Auto 0.04 X10*3/uL (0.00-0.03); Imm Gran Pct Auto 0.4 % (0.0-0.4); Lymphocytes Absolute Auto 2.7 X10*3/uL (1.2-4.9); Mean Corpuscular HGB Conc 33.2 g/dl (31.0-35.0); Mean Corpuscular Hemoglobin 29.4 pg (27.0-33.0); Mean Corpuscular Volume 88.7 fL (80.0-98.0); NRBC Abs Auto 0.000 X10*3/uL (0.0-0.012); NRBC Pct Auto 0.0 /100WBC (0.0-0.2); Platelet Count 231 X10*3/uL (160-400); Red Blood Count 4.59 X10*6/uL (4.20-5.50); White Blood Count 9.3 X10*3/uL (4.8-10.8)
[2025-03-13 18:15] LABS: Alanine Aminotransferase 40 U/L (0-31); Albumin Level 4.2 g/dL (3.5-5.0); Alkaline Phosphatase 78 U/L (39-117); Anion Gap 15 (12-20); Aspartate Amino Transferase 33 U/L (5-31); Blood Urea Nitrogen 15 mg/dL (9-16); Calcium 9.2 mg/dL (8.4-10.2); Carbon Dioxide 22 mmol/L (22-29); Chloride 105 mmol/L (96-108); Estimated Glomerular Filt Rate > 60; Potassium 4.3 mmol/L (3.3-5.1); Sodium 138 mmol/L (135-145); Total Protein 7.5 g/dL (6.5-8.0)
== END 2025-03-13 13:59 | disposition home or self-care (01) ==
LOC: HO.WFDLDS 13:58
PROVIDERS: Visit Provider Internal Medicine
DX: R68.89 Other general symptoms and signs (principal); Z13.228 Encounter for screening for other metabolic disorders; Z13.0 Encounter for screening for diseases of the blood and blood-forming organs and certain disorders involving the immune mechanism; Z13.220 Encounter for screening for lipoid disorders
CPT/HCPCS: 36415; 80053; 83721; 84443; 85025; 85652